=== PATIENT | female | born 1955 | race Caucasian/White ===

== ENCOUNTER 2017-01-19 12:25 | Inpatient (IN) | payer OTHER ==
[~2017-01-19] VITALS: Ht 172.7 cm; Wt 41.0 kg
[2017-02-02] MEDS ORDERED: CALC1TAB12 PO (10:31)
[2017-02-02] MEDS ORDERED: LEVO100T5 PO (10:31)
[2017-02-02] MEDS ORDERED: CELE200C PO (10:31)
[2017-02-02] MEDS ORDERED: FLUT50SP EACH NARE (10:31)
[2017-02-02] MEDS ORDERED: CO Q100C9 PO (10:31)
[2017-02-02] MEDS ORDERED: LEVO200T4 PO (10:31)
[2017-02-02] MEDS ORDERED: POTA10TA8 PO (10:31)
[2017-02-02] MEDS ORDERED: ESTR0.5T PO (10:31)
[2017-02-02] MEDS ORDERED: ZOCO40TA PO (10:31)
[2017-02-02] MEDS ORDERED: VENTAER INH ×2 (10:31)
[2017-02-02] MEDS ORDERED: FURO20TA PO (10:31)
[2017-02-02] MEDS ORDERED: ERGO1CAP10 PO (10:31)
[2017-02-02] MEDS ORDERED: MULTTAB25 PO (10:32)
[2017-02-02] MEDS ORDERED: RANI150T PO (10:40)
[2017-02-21] MEDS ORDERED: POVIDONE IODINE 5% (ANTISEPSIS KIT) 4 APPLICATIONS EACH NARE PRN (06:15)
[2017-02-21] MEDS ORDERED: INSULIN HUMAN REGULAR 1,000 UNITS/10 ML VIAL SQ PRN (06:15)
[2017-02-21] MEDS ORDERED: METOPROLOL TARTRATE 25 MG TAB PO PRN (06:15)
[2017-02-21] MEDS ORDERED: SODIUM CHLORID 0.9% 500 ML IV PRN (06:15)
[2017-02-21] MEDS ORDERED: LACTATED RINGER'S 1000 ML IV PRN (06:15)
[2017-02-21] MEDS ORDERED: CHLORHEXIDINE GLUCONATE 2 % 1 PACK (2 CLOTHS) TOPICAL PRN (06:15)
[2017-02-21] MEDS ORDERED: ENOX40P SQ (06:50)
[2017-02-21] MEDS ORDERED: HYDR-3288 PO (06:50)
[2017-02-21] MEDS ORDERED: ASPI81CH37 CHEW (06:51)
[2017-02-21] MEDS ORDERED: ONDANSETRON HCL 4 MG/2 ML VIAL IVP PRN ×2 (07:00→17:00)
[2017-02-21] MEDS ORDERED: BISACODYL 10 MG SUPP RECTAL PRN (07:00)
[2017-02-21] MEDS ORDERED: NALOXONE HCL 0.4 MG/ML AMP IV PRN (07:00)
[2017-02-21] MEDS ORDERED: ALUMINUM/MAGNESIUM/SIMETH 30 ML CUP PO PRN (07:00)
[2017-02-21] MEDS ORDERED: SODIUM CHLORIDE 0.9% FLUSH 5 ML FLUSH IVF PRN (07:00)
[2017-02-21] MEDS ORDERED: HYDROmorphone HCL PF 2 MG/ML VIAL IV PRN (07:00)
[2017-02-21] MEDS ORDERED: ACETAMINOPHEN/HYDROcodone 325 MG/7.5 MG TAB PO PRN (07:00)
[2017-02-21] MEDS ORDERED: ZOLPIDEM TARTRATE 5 MG TAB PO PRN (07:00)
[2017-02-21] MEDS ORDERED: diphenhydrAMINE HCL 50 MG/ML VIAL IV PRN (07:00)
[2017-02-21] MEDS ORDERED: Post-op Orders (for Pharmacy) MISC XX ONE (07:00)
[2017-02-21] MEDS ORDERED: LEVO50TA4 PO (07:14)
[2017-02-21] MEDS ORDERED: LEVO150T7 PO (07:14)
[2017-02-21 07:20] VITALS: BP 126/77; PULSE 89; RESP 16; TEMP 98.3; O2SAT 98
[2017-02-21] MEDS ORDERED: ceFAZolin 2 GM PREMIX 50 ML ONE (07:20)
[2017-02-21] MEDS ORDERED: DEXAMETHASONE SOD PHOS 20 MG/5 ML VIAL ONE (07:20)
[2017-02-21] MEDS ORDERED: VANCOMYCIN HCL 1000 MG VIAL ONE (07:21)
[2017-02-21] MEDS ORDERED: SODIUM CHLOR 0.9% 250 ML INJ 250 ML ONE (07:21)
[2017-02-21] MEDS ORDERED: GENTAMICIN SULFATE 80 MG/2 ML VIAL ONE (07:49)
[2017-02-21] MEDS ORDERED: ACETAMINOPHEN 1000 MG/100 ML VIAL IV ONE (08:00)
[2017-02-21] MEDS ORDERED: TRANEXAMIC PERI-ARTICULAR 3,000 MG/NS 100 ML P-ARTICULR SCH ×2 (08:00)
[2017-02-21] MEDS ORDERED: POVIDONE IODINE 7.5% SCRUB 118 ML BOTTLE TOPICAL SCH (08:00)
[2017-02-21] MEDS ORDERED: CHLORHEXIDINE GLUCONATE 4% SOLN 120 ML BTL TOPICAL SCH (08:00)
[2017-02-21] MEDS ORDERED: ROPIVACAINE PERI-ARTICULAR INJECTION. P-ARTICULR SCH ×5 (08:00)
[2017-02-21] MEDS ORDERED: TRANEXAMIC ACID IV SCH (08:00)
[2017-02-21] MEDS ORDERED: SODIUM CHLORIDE 0.9% IV SCH (08:00)
[2017-02-21] MEDS ORDERED: ceFAZolin 2 GM PREMIX 50 ML IV SCH (08:00)
[2017-02-21] MEDS ORDERED: VANCOMYCIN 1000 MG/NS 250 ML (for <70 kg) IV SCH ×2 (08:00)
[2017-02-21] MEDS ORDERED: FAMOTIDINE 20 MG/2 ML VIAL ONE (08:05)
[2017-02-21] MEDS ORDERED: MIDAZOLAM HCL 5 MG/5 ML VIAL ONE (08:05)
[2017-02-21] MEDS ORDERED: DEXAMETHASONE SOD PHOS 20 MG/5 ML VIAL IV ONE (08:15)
[2017-02-21] MEDS ORDERED: PROPOFOL 200 MG/20 ML AMP IV ONE (09:11)
[2017-02-21] MEDS ORDERED: PHENYLEPH/NS 1000 MCG/10 ML SYR IV ONE (09:12)
[2017-02-21] MEDS ORDERED: ONDANSETRON HCL 4 MG/2 ML VIAL IV PUSH ONE (09:12)
[2017-02-21] MEDS ORDERED: NEOSTIGMINE 3 MG/3 ML SYR IV ONE (09:12)
[2017-02-21] MEDS ORDERED: LACTATED RINGER'S 1000 ML INJ 1,000 ML IV ONE (09:13)
[2017-02-21] MEDS ORDERED: BUPIVACAINE LIPOSOME PF 1.3% 20 ML VIAL ONE (10:45)
[2017-02-21] MEDS ORDERED: fentaNYL CITRATE 250 MCG/5 ML AMP ONE (11:06)
[2017-02-21] MEDS ORDERED: *HYDROmorphone PF 1 MG VIAL PERIprocedural Use ONLY ONE (11:10)
[2017-02-21] MEDS: SODIUM CHLOR 0.9% 1000 ML INJ 1,000 ML IV SCH ×3 (11:20→19:41)
--- NOTE | 2017-02-21 11:30 | RADRPT ---
EXAM DATE/TIME: 02/21/2017 10:59 [facility] COMPARISON: No previous studies available for comparison. INDICATIONS : Post op left total knee replacment. MEDICAL HISTORY : Unobtainable. SURGICAL HISTORY : Unobtainable. ENCOUNTER: Initial ACUITY: 1 day PAIN SCORE: Non-responsive. LOCATION: Left knee FINDINGS: 2 views of the knee show a total knee prosthesis in good position. No fracture or dislocation is obse rved. Soft tissue swelling is noted. Air and fluid is noted within the joint. CONCLUSION: Postoperative knee arthroplasty. Vernon Walsh Jr., MD on February 21, 2017 at 11:26 Board Certified Radiologist. This report was verified electronically.
[2017-02-21 12:15] VITALS: BP 184/98; PULSE 94; RESP 18; TEMP 96.1; O2SAT 99
--- NOTE | 2017-02-21 13:04 | HHI.DCPOC ---
Discharge Care Plan Diagnosis: (1) Primary localized osteoarthrosis, lower leg Your Health Problems Are: Difficulty with ADL Goals to Promote Your Health * To prevent worsening of your condition and complications * To maintain your health at the optimal level Directions to Meet Your Goals Take your medications as prescribed Follow your dietary instruction Follow activity as directed Keep your appointments as scheduled Take your immunizations and boosters as scheduled If your symptoms worsen call your PCP, if no PCP go to Urgent Care Center or Emergency Room Smoking is Dangerous to Your Health. Avoid second hand smoke Call the 24-hour hour crisis hotline for domestic abuse at Earl Aguila February 21, 2017 13:04
[2017-02-21] MEDS ORDERED: COMMODE 3-IN-11 MIS (13:06)
[2017-02-21] MEDS ORDERED: CPMMACHINE (13:06)
[2017-02-21] MEDS ORDERED: WALKER WHEELS/F1 MIS (13:06)
[2017-02-21] MEDS: ACETAMINOPHEN/HYDROcodone 325 MG/7.5 MG TAB PO PRN ×2 (13:10→17:43)
--- NOTE | 2017-02-21 13:12 | HHI.FF ---
Face to Face Verification Diagnosis: (1) Primary localized osteoarthrosis, lower leg Physical Therapy Gait training, Safety evaluation, Transfer training, bed to chair Knee: Total knee, Protocol: Left, Full weight bearing Left LE Weight Bearing: WB as tolerated Nursing RN: 3 days/week x 2 weeks Nursing: Evelin teaching, Dressing changes Dressing Changes: Daily dressing change I have seen patient Yvette Vidal on 02/21/17. My clinical findings support the need for the requested home health care services because: Limited ability to care for self High risk of falls I certify that my clinical findings support that this patient is homebound because: Post-op weakness Unsteady gait/balance Earl Aguila February 21, 2017 13:12
--- NOTE | 2017-02-21 15:20 | PD.CONS ---
HPI Service [facility] Hospitalists Consult Requested By Dr. Earl Groves Reason for Consult medical management Primary Care Physician Harris Zhang MD Diagnoses: History of Present Illness Mrs. Vidal is a pleasant 61 y/o female with hypothyroidism, mild PHILIP, hyperlipidemia hx of breast cancer and osteoarthritis. Pt was admitted to [facility] on 02/21/17 for elective Left total knee arthroplasty performed by Dr. Groves. [facility] Hospitalist team was consulted to help with managing the pts chronic medical issues. She is seen post-operatively and complains of pain. She has also been having some nausea and vomiting. She denies any issues with her BP normally and she does not take any BP controlling medications as an outpt. Pt denies any chest pain, SOB, abd pain, dysphagia, palpitations or dizziness. Murrell cath is in place. Review of Systems Constitutional: DENIES: Fever, Chills Respiratory: DENIES: Shortness of breath Cardiovascular: DENIES: Chest pain Gastrointestinal: COMPLAINS OF: Nausea, Vomiting, DENIES: Abdominal pain Musculoskeletal: COMPLAINS OF: Joint pain Integumentary: DENIES: Rash Neurologic: DENIES: Headache Psychiatric: DENIES: Confusion Past Family Social History Past Medical History Hypothyroidism Hyperlipidemia Osteoarthritis Migraine headaches Obstructive sleep apnea, uses a dental appliance and she has mild sleep apnea. Asthma Hx of breast cancer Vitamin D deficiency GERD Hx of depression Allergic rhinitis Past Surgical History Left breast radical mastectomy in 1997 along with chemotherapy and radiation therapy Left breast reconstruction Prophylactic simple right mastectomy on 08-31-10 with right breast reconstruction Right knee arthroscopy Cesarian section ERNST with BSO Ventral hernia repair Reported Medications --Levothyroxine 200 Mcg PO MoFr --Levothyroxine 150 Mcg PO SuTuWeThSa -Ranitidine 150 Mg PO BID -Ventolin Hfa 18 GM Inh (Albuterol Sulfate) 90 Mcg/Act Aer 2 Puff INH Q4-6H PRN -Celebrex (Celecoxib) 200 Mg Cap 300 Mg PO DAILY PRN -Zocor 40 Mg PO HS -Potassium Chloride CR 10 Meq PO DAILY -Furosemide 20 Mg PO DAILY -Fluticasone Nasal [place] 50 Mcg/Act Naspr 50 Mcg EACH NARE BID 50 mcg/spray -Estradiol 0.5 Mg Tab 0.5 Mg PO TUESDAY Multi For Her 50+ (Multiple Vitamins W/ Minerals) 1 Tab Tab 1 Tab PO DAILY Co Q 10 (Coenzyme Q10 (Ubidecarenone)) 100 Mg Cap 1 Cap PO DAILY Calcium 500 +D (Calcium Carbonate-Cholecalciferol) 500-400 Mg-Unit Tab 1 Tab PO DAILY Vitamin D (Ergocalciferol) 50,000 Unit Cap 50,000 Units PO TUESDAY Allergies: Coded Allergies: Ciprofloxacin (Verified Allergy, Severe, 02/02/17) YEAST Spironolactone (Verified Allergy, Severe, Rash, 02/02/17) RASH Morphine (Verified Adverse Reaction, Intermediate, Confusion, 02/21/17) Uncoded Allergies: ASPARTAME (Allergy, Severe, MOOD SWINGS, 02/21/17) paper tape (Allergy, Severe, Rash, 02/02/17) Family History Noncontributory Social History Pt denies any alcohol, tobacco or illicit drug use Pt works as a nurse Physical Exam Vital Signs Vital Signs Date Time Temp Pulse Resp B/P Pulse Ox O2 Delivery O2 Flow Rate FiO2 02/21/17 12:15 96.1 94 18 184/98 99 02/21/17 12:00 97.8 96 16 152/78 96 Nasal Cannula 2 02/21/17 11:45 99 16 154/85 95 Nasal Cannula 2 02/21/17 11:30 96 15 152/77 98 Nasal Cannula 2 02/21/17 11:15 97 16 155/78 97 Nasal Cannula 2 02/21/17 11:00 108 15 154/82 95 Nasal Cannula 2 02/21/17 10:58 97.7 114 14 168/79 91 Room Air 02/21/17 07:20 98.3 89 16 126/77 98 Physical Exam GENERAL: This is a well-nourished, well-developed patient, in no apparent distress. HEENT: Atraumatic. Normocephalic. No temporal or scalp tenderness. No scleral icterus. Airway patent. NECK: Trachea midline, supple, nontender. CARDIO: Regular. RESP: CTA bilaterally. No wheezes, rales, or rhonchi. ABD: +BS, soft, non-tender, nondistended. EXT: Left knee bandages are c/d/i NEURO: Awake and alert. Motor and sensory grossly within normal limits. Normal speech. Laboratory Laboratory Tests Test 02/21/17 07:16 Blood Type O POSITIVE Antibody Screen NEGATIVE Imaging Last Impressions Knee X-Ray 02/21/17 0647 Signed Impressions: Service Date/Time: Tuesday, February 21, 2017 10:59 - CONCLUSION: Postoperative knee arthroplasty. Vernon Walsh Jr., MD Assessment and Plan Problem List: (1) Primary localized osteoarthrosis, lower leg Status: Acute Plan: - Pt s/p left total knee arthroplasty on 02/21/[address] Groves - Post-op pain control per Ortho - Antiemetics PRN - Murrell to be removed tomorrow morning. - Pts BP elevation likely secondary to pain and N/V but will add Clonidine 0.1mg PRN for systolic BP over 170 - IS - PT daily - Constipation precautions - DVT prophylaxis with Lovenox (2) PHILIP (obstructive sleep apnea) Status: Chronic Plan: - Pt uses a dental appliance and this is well controlled per the pt. (3) Hyperlipidemia Status: Chronic Plan: - home meds continued (4) Hypothyroidism Status: Chronic Plan: - Home meds continued with Levothyroxin 200mcg MoFr and 150mcg SuTuWeThSa Assessment and Plan Patient examined. Assessment and plan formulated with Chanda Clemens PA-C. I agree with the above. S/P LEFT TKA. HAVING SOME N/V NOW BUT OVERALL DOING WELL. WILL FOLLOW. Problem Qualifiers (1) Primary localized osteoarthrosis, lower leg: Qualified Code: M17.12 - Primary localized osteoarthrosis, lower leg, left Chanda Clemens February 21, 2017 15:20 José Miguel Mcdowell MD February 21, 2017 20:53
[2017-02-21 16:00] VITALS: BP 102/80; PULSE 96; RESP 18; TEMP 96.6; O2SAT 99
[2017-02-21] MEDS ORDERED: ONDANSETRON HCL 4 MG/2 ML VIAL IV ONE (16:00)
[2017-02-21] MEDS ORDERED: PROMETHAZINE HCL 25 MG TAB PO PRN (16:00)
[2017-02-21 16:22] VITALS: O2SAT 100
[2017-02-21] MEDS ORDERED: cloNIDine HCL 0.1 MG TAB PO PRN (16:30)
[2017-02-21 19:00] VITALS: BP 116/68; PULSE 93; RESP 18; TEMP 97.8; O2SAT 98
[2017-02-21] MEDS: FAMOTIDINE 20 MG TAB PO SCH (19:40)
[2017-02-21] MEDS: POLYETHYLENE GLYCOL 17 GM PKG PO SCH (19:40)
[2017-02-21] MEDS: SODIUM CHLORIDE 0.9% FLUSH 5 ML FLUSH IVF SCH (19:41)
[2017-02-21] MEDS ORDERED: MAGNESIUM HYDROXIDE SUSP 30 ML CUP PO PRN (23:45)
[2017-02-22] VITALS (8 sets, daily range): BP systolic 97–138; BP diastolic 56–68; PULSE 89–105; RESP 16–18; TEMP 96.3–98.8; O2SAT 98–100
[2017-02-22] MEDS: ACETAMINOPHEN/HYDROcodone 325 MG/7.5 MG TAB PO PRN ×4 (00:14→20:36)
[2017-02-22] MEDS: LEVOTHYROXINE SODIUM 150 MCG TAB PO SCH (05:35)
[2017-02-22] MEDS ORDERED: LEVOTHYROXINE SODIUM 200 MCG TAB PO SCH (06:00)
--- NOTE | 2017-02-22 08:23 | PD.ORT.PN ---
Subjective Post Op Day #: 1 Subjective Remarks doing well. pain tolerable. worried that she has stairs to climb at home. Objective Vitals Vital Signs Date Time Temp Pulse Resp B/P Pulse Ox O2 Delivery O2 Flow Rate FiO2 02/22/17 07:49 97.8 100 18 101/60 99 02/22/17 04:00 97.0 101 17 111/56 98 02/22/17 00:00 96.3 92 16 115/68 98 02/21/17 19:39 98 Nasal Cannula 2.00 02/21/17 19:00 97.8 93 18 116/68 98 02/21/17 16:22 100 Nasal Cannula 2.00 02/21/17 16:00 96.6 96 18 102/80 99 02/21/17 12:15 96.1 94 18 184/98 99 02/21/17 12:00 97.8 96 16 152/78 96 Nasal Cannula 2 02/21/17 11:45 99 16 154/85 95 Nasal Cannula 2 02/21/17 11:30 96 15 152/77 98 Nasal Cannula 2 02/21/17 11:15 97 16 155/78 97 Nasal Cannula 2 02/21/17 11:00 108 15 154/82 95 Nasal Cannula 2 02/21/17 10:58 97.7 114 14 168/79 91 Room Air I/O 02/21/17 02/21/17 02/21/17 02/22/17 02/22/17 02/22/17 07:00 15:00 23:00 07:00 15:00 23:00 Intake Total 1240 ml 985 ml 1407 ml Output Total 250 ml 300 ml 950 ml Balance 990 ml 685 ml 457 ml Intake Oral 240 ml 480 ml 480 ml IV Total 200 ml 505 ml 927 ml Other 800 ml Output Urine Total 200 ml 300 ml 950 ml Estimated Blood Loss 50 ml # Bowel Movements 0 0 Objective Remarks in bed, nad incision no erythema, no drainage neg homans nvi Assessment & Plan Ortho Post Op Day #: 1 Problem List: Assessment and Plan s/p L TKA wbat daily dressing changes lovenox rx in chart PT - work on stairs d/c planning home with [facility] and pt f/up dr. villagomez 2 weeks Earl Aguila February 22, 2017 08:22
[2017-02-22] MEDS: FAMOTIDINE 20 MG TAB PO SCH ×2 (08:42→19:44)
[2017-02-22] MEDS: POLYETHYLENE GLYCOL 17 GM PKG PO SCH ×2 (08:43→19:44)
[2017-02-22] MEDS: POTASSIUM CHLORIDE 10 MEQ CONTROLLED RELEASE TAB PO SCH (08:43)
[2017-02-22] MEDS: SODIUM CHLORIDE 0.9% FLUSH 5 ML FLUSH IVF SCH ×2 (08:43→19:45)
[2017-02-22] MEDS: FUROSEMIDE 20 MG TAB PO SCH (08:43)
[2017-02-22 08:47] LABS: MEAN CELL VOLUME 87.6 FL (80.0-100.0); MEAN CORPUSCULAR HGB CONC 33.1 % (32.0-36.0); PLATELET COUNT 292 TH/MM3 (150-450); RED BLOOD COUNT 3.65 MIL/MM3 (4.00-5.30); RED CELL DISTRIBUTION WIDTH 14.6 % (11.6-17.2); REVIEW FLAG FINAL; WHITE BLOOD COUNT 13.4 TH/MM3 (4.0-11.0)
[2017-02-22 09:02] LABS: BICARBONATE 21.9 MEQ/L (21.0-32.0); POTASSIUM 3.7 MEQ/L (3.5-5.1)
[2017-02-22] MEDS: ENOXAPARIN SODIUM 40 MG/0.4 ML SYRINGE SQ SCH (09:49)
--- NOTE | 2017-02-22 10:06 | MP ---
cc: TAYLER BINGHAM DATE OF SURGERY: 02/21/2017 PREOPERATIVE DIAGNOSIS Left knee osteoarthritis. POSTOPERATIVE DIAGNOSIS Left knee osteoarthritis. PROCEDURE Left total knee arthroplasty. SURGEON Dr. Tayler Bingham ENGINEER [employer] Tayler Aguila PA-C ANESTHESIA General with femoral nerve block. ESTIMATED BLOOD LOSS Less than 50 cc. COMPLICATIONS None. IMPLANTS USED DePuy Attune, size 6 posterior stabilized femoral component, size 5 rotating platform tibial baseplate, size 12 mm polyethylene tibial insert, size 35 patella. JUSTIFICATION The patient is a 61-year-old female with a history of severe osteoarthritis involving the left knee. She has severe disabling pain with standing, walking, ambulation, weightbearing activities and even severe pain at rest. She has failed greater than three months of nonoperative conservative treatment to include medication therapy, injections, ambulatory assisted aids, home exercise program, activity modification and weight loss. The patient's x-rays reveal severe end-stage osteoarthritis, [id number] joint space narrowing, subchondral sclerosis, subchondral cysts, osteophyte formation and a large varus deformity. The patient is counseled as to the risks, benefits and alternatives to a total knee arthroplasty. The risks were discussed which include but are not limited to anesthesia, bleeding, infection, damage to nerves and blood vessels, pain, stiffness, failure of the components, blood clots, pulmonary embolism and even . The patient's pain is severe. She favored the benefits over the risks and did wish to proceed with surgery. PROCEDURE Written consent was obtained. The patient was identified by name, taken to the operating room and placed supine on the operating table. General anesthesia was administered as well as two grams of IV Ancef and one gram of IV vancomycin. She did receive a preoperative femoral nerve block. A well-padded tourniquet was placed on the left thigh. The left lower extremity prepped and draped using isopropyl alcohol, Hibiclens solution and ChloraPrep solution. After a timeout was performed an Esmarch bandage was used to exsanguinate the left lower extremity and tourniquet inflated to 250 mmHg. A longitudinal incision was made over the anterior aspect of the left knee. A medial parapatellar arthrotomy was performed. The patella was everted. A patellar resection guide was used to resect 9 mm of patella. The size 35 mm guide was placed. Three drill holes were placed and the 35 mm trial fit well. Attention was turned to the femur. An intramedullary guide was placed and the distal femoral guide was set to remove 10 mm of distal femur 5 degrees off the anatomic valgus axis alignment. An oscillating saw was used to perform a distal femoral cut. Attention was turned to the tibia where an extramedullary tibial guide was used to remove 4 mm off the lowest portion of the medial tibial plateau. The tibial guide was pinned in place and a tibial cut was performed. A 5 mm spacer block did show some hyperextension. Attention was turned back to the femur where an AP sizing block measured a size 6. The anterior reference 30 degree external rotation guide was used to pin a size [address] The anterior, posterior and chamfer cuts were performed. A size 6 PCL box guide pin was pinned in place. The PCL was box cut with an oscillating saw. The medial and lateral meniscus remnants were removed as well as bone and soft tissue debris from the posterior portion of the knee. A size 5 tibial baseplate was pinned in place. The tibia was drilled and punched. The trial components were evaluated and final components cemented in place. With the 12 mm tibial insert the leg could achieve full extension to 0 degrees and flexion to 140. No evidence of tibial lift-off. Varus-valgus balance appeared appropriate and symmetric and the patella was noted to track centrally. The tourniquet was deflated. Bovie cautery was used for hemostasis. The knee was thoroughly irrigated with sterile saline pulse lavage antibiotic impregnated solution. The arthrotomy incision was closed with #1 Vicryl suture, the subcutaneous layer with 2-0 Vicryl suture. The skin was closed with Dermabond. Sterile dressing was applied. The patient tolerated the procedure with no intraoperative complications noted. Tayler Aguila, physician prosthetic assistant certified, was present during the entire procedure to include patient positioning and the procedure itself. The medical necessity of the physician prosthetic assistant was indicated in this case due to the complexity of the procedure. He assisted with appropriate manipulation of the leg and also traction of muscle, tendon, bone and neurovascular structures. He assisted with preparation of bone and also implantation of the prosthetic replacement. MD NIDA Watkins/ROMEO /10:30 AM 9:47 AM
[2017-02-22] MEDS: SODIUM CHLOR 0.9% 1000 ML INJ 1,000 ML IV SCH ×2 (12:47→19:45)
[2017-02-22] MEDS: DOCUSATE SODIUM 100 MG CAP PO SCH (19:44)
[2017-02-22] MEDS: MULTIVITAMINS/MINERALS THERAPEUTIC TAB PO SCH (19:44)
[2017-02-23 00:15] VITALS: BP 124/65; PULSE 100; RESP 17; TEMP 97.6; O2SAT 100
[2017-02-23] MEDS: LEVOTHYROXINE SODIUM 150 MCG TAB PO SCH (05:18)
[2017-02-23] MEDS: ACETAMINOPHEN/HYDROcodone 325 MG/7.5 MG TAB PO PRN ×2 (05:19→09:00)
[2017-02-23 07:07] LABS: HEMATOCRIT 27.1 % (35.0-46.0); MEAN CELL VOLUME 86.7 FL (80.0-100.0); MEAN CORPUSCULAR HEMOGLOBIN 30.3 PG (27.0-34.0); PLATELET COUNT 237 TH/MM3 (150-450); RED BLOOD COUNT 3.12 MIL/MM3 (4.00-5.30); RED CELL DISTRIBUTION WIDTH 14.9 % (11.6-17.2); REVIEW FLAG FINAL; WHITE BLOOD COUNT 6.9 TH/MM3 (4.0-11.0)
[2017-02-23 07:37] LABS: BICARBONATE 27.5 MEQ/L (21.0-32.0); POTASSIUM 3.5 MEQ/L (3.5-5.1)
--- NOTE | 2017-02-23 07:50 | PD.ORT.PN ---
Subjective Post Op Day #: 2 Subjective Remarks doing well. pain tolerable. going to work more with PT this am with going up stairs. Objective Vitals Vital Signs Date Time Temp Pulse Resp B/P Pulse Ox O2 Delivery O2 Flow Rate FiO2 02/23/17 00:15 97.6 100 17 124/65 100 02/22/17 20:15 98.8 105 18 108/66 99 02/22/17 18:06 98 21 02/22/17 16:00 97.6 96 18 97/65 98 02/22/17 12:00 97.6 89 18 138/57 100 02/22/17 08:40 Room Air 02/22/17 08:39 99 Nasal Cannula 1.00 I/O 02/22/17 02/22/17 02/22/17 02/23/17 02/23/17 02/23/17 07:00 15:00 23:00 07:00 15:00 23:00 Intake Total 1407 ml 720 ml 240 ml 240 ml Output Total 950 ml Balance 457 ml 720 ml 240 ml 240 ml Intake Oral 480 ml 720 ml 240 ml 240 ml IV Total 927 ml Output Urine Total 950 ml # Voids 4 1 2 # Bowel Movements 0 0 0 0 Result Diagram: 02/23/17 0613 02/23/17 0613 Objective Remarks in bed, nad dressing c/d/i neg homans nvi Assessment & Plan Ortho Post Op Day #: 2 Problem List: Assessment and Plan s/p L TKA wbat daily dressing changes lovenox rx in chart PT - work on stairs d/c planning home with [facility] and pt - cleared for today f/up dr. villagomez 2 weeks Earl Aguila February 23, 2017 07:50
[2017-02-23 08:00] VITALS: BP 104/64; PULSE 84; RESP 19; TEMP 97.2; O2SAT 93
[2017-02-23] MEDS: DOCUSATE SODIUM 100 MG CAP PO SCH (09:00)
[2017-02-23] MEDS: POLYETHYLENE GLYCOL 17 GM PKG PO SCH ×2 (09:00→10:09)
[2017-02-23] MEDS: FUROSEMIDE 20 MG TAB PO SCH (09:01)
[2017-02-23] MEDS: MULTIVITAMINS/MINERALS THERAPEUTIC TAB PO SCH (09:01)
[2017-02-23] MEDS: FAMOTIDINE 20 MG TAB PO SCH (09:01)
[2017-02-23] MEDS: POTASSIUM CHLORIDE 10 MEQ CONTROLLED RELEASE TAB PO SCH (09:01)
[2017-02-23] MEDS: ENOXAPARIN SODIUM 40 MG/0.4 ML SYRINGE SQ SCH (10:08)
--- NOTE | 2017-02-23 12:14 | MD ---
cc: TAYLER BINGHAM ADMISSION DATE: 02/21/2017 DISCHARGE DATE: 02/23/2017 ADMISSION DIAGNOSIS Severe degenerative osteoarthritis, left knee. DISCHARGE DIAGNOSIS Severe degenerative osteoarthritis, left knee. HISTORY OF PRESENT ILLNESS Ms. Vidal is a 61-year-old female who presented to the [facility] for evaluation by Dr. Tayler Bingham regarding severe and progressive left knee pain. The patient states the left knee pain has been present for several years but has become more significant over the last 6 months. She states her pain is aggravated with weightbearing activities. At this point in time she had no alleviating factors, although in the past she has tried medications, bracing, physical therapy, home exercise program, weight loss attempts and multiple corticosteroid injections without long-lasting relief of symptoms. She does have x-ray evidence of severe degenerative osteoarthritis of the left knee. While in the office the patient was counseled on her diagnosis and treatment options. Risks, benefits, indications were all discussed in great detail. The patient did elect to proceed with surgical intervention to include a left total knee arthroplasty. Date of surgery 02/21/2017: Left total knee arthroplasty. POSTOP Postop after surgery the patient was admitted to [facility] where she received appropriate medical management, pain control and DVT prophylaxis as well as physical therapy. DISCHARGE Once being discharged from the hospital the patient is cleared to go home where she will receive home health care and home physical therapy. Patient is in stable condition. She may weight-bear as tolerated. Patient is to receive daily dressing changes and has been instructed on appropriate wound care management. She has been provided prescriptions for pain control as well as DVT prophylaxis medication. She has also been provided a follow-up appointment in the office at approximately 2 weeks from her date of surgery. The patient has asked appropriate questions which have been answered. The patient is cleared for discharge. Dictated by: Tayler Aguila, AMA MD NIDA Watkins/MALENAL /7:54 AM /12:13 PM
[2017-02-25] MEDS ORDERED: LEVOTHYROXINE SODIUM 200 MCG TAB PO SCH (06:00)
== END 2017-02-23 10:52 | disposition home health service (06) | DRG 470 ==
LOC: HSDI 02-21 05:38 → N06B 02-21 12:25
PROVIDERS: ADMIT Orthopaedic Surgery Sports Medicine; ATTEND Orthopaedic Surgery Sports Medicine
PROC: 3E0T3CZ (ICD-10-PCS; 2017-02-21)
PROC: 0SRD0J9 Replacement of Left Knee Joint with Synthetic Substitute, Cemented, Open Approach (ICD-10-PCS; principal; 2017-02-21 08:18)
DX: M17.12 Unilateral primary osteoarthritis, left knee (principal); E55.9 Vitamin D deficiency, unspecified; E03.9 Hypothyroidism, unspecified; E78.5 Hyperlipidemia, unspecified; J45.909 Unspecified asthma, uncomplicated; K21.9 Gastro-esophageal reflux disease without esophagitis; G47.33 Obstructive sleep apnea (adult) (pediatric); J30.9 Allergic rhinitis, unspecified; Z85.3 Personal history of malignant neoplasm of breast
CPT/HCPCS: 73560; 76937; 80048; 85027; 86850; 86900; 86901; 94150; C1776; C9290; J0131; J0171; J0690; J0735; J1100; J1170; J1580; J1650; J1885; J2250; J2370; J2405; J2710; J2795; J3010; J3370; J7030; J7050; J7120; L1830; Q0169

== ENCOUNTER → 2017-02-02 | Outpatient (CLI) | payer OTHER ==
[~2017-02-02] MED LIST: ASPI81CH37 CHEW; CALC1TAB12 PO; CALCCHW25 PO; CELE200C PO; CO Q100C9 PO; COMMODE 3-IN-11 MIS; COQ-100C5 PO; CPMMACHINE; DICL75 PO; ENOX40P SQ; ERGO1CAP10 PO; ESTR0.053 TD; ESTR0.5T PO; FLON0.053; FLUT50SP EACH NARE; FURO1TAB93 PO; FURO20TA PO; HYDR-3288 PO; LEVO.2 PO; LEVO100T5 PO; LEVO150T7 PO; LEVO200T4 PO; LEVO50TA4 PO; METO25CR PO; MULT-65 PO; MULTTAB25 PO; PANT40TA3 PO; POTA-243 PO; POTA10TA8 PO; PROT40TA PO; RANI150T PO; SIMV40 PO; VENTAER INH; VITA200017 OR; WALKER WHEELS/F1 MIS; ZOCO40TA PO
[2017-02-02 11:33] LABS: AUTOMATED NEUTROPHIL # 5.8 TH/MM3 (1.8-7.7); BASOPHIL % 0.2 % (0.0-2.0); EOSINOPHIL % 0.5 % (0.0-4.0); HEMATOCRIT 39.2 % (35.0-46.0); HEMO FLAGS DIFF FINAL; LYMPH % 23.7 % (9.0-44.0); MEAN CELL VOLUME 87.6 FL (80.0-100.0); MEAN CORPUSCULAR HEMOGLOBIN 28.8 PG (27.0-34.0); MEAN CORPUSCULAR HGB CONC 32.8 % (32.0-36.0); MONO % 6.8 % (0.0-8.0); NEUT % 68.8 % (16.0-70.0); PLATELET COUNT 275 TH/MM3 (150-450); RED BLOOD COUNT 4.47 MIL/MM3 (4.00-5.30); WHITE BLOOD COUNT 8.4 TH/MM3 (4.0-11.0)
--- NOTE | 2017-02-02 11:38 | EKG ---
Date Performed: 02/02/2017 Time Performed: 10:12:14 PTAGE: 61 years EKG: Sinus rhythm NORMAL ECG NO PREVIOUS TRACING DOCTOR: Moi Rodriguez Interpretating Date/Time 02/02/2017 11:37:49
[2017-02-02 11:40] LABS: APTT (PATIENT) 26.8 SEC (24.3-30.1); INTERNATIONAL NORMALIZED RATIO 0.9 RATIO
[2017-02-02 11:57] LABS: WESTERGREN SEDIMENTATION RATE 36 mm/hr (0-30)
[2017-02-02 12:00] LABS: ALKALINE PHOSPHATASE 100 U/L (45-117); ALT (GPT) 23 U/L (10-53); ANION GAP 8 MEQ/L (5-15); AST (GOT) 19 U/L (15-37); BICARBONATE 27.8 MEQ/L (21.0-32.0); BLOOD UREA NITROGEN 9 MG/DL (7-18); CHLORIDE 101 MEQ/L (98-107); GLOMERULAR FILTRATION RATE 91 ML/MIN (>89); GLUCOSE,FASTING 88 MG/DL (74-99); POTASSIUM 3.8 MEQ/L (3.5-5.1); SODIUM (NA) 137 MEQ/L (136-145); TOTAL BILIRUBIN ADULT 0.5 MG/DL (0.2-1.0)
[2017-02-02 12:04] LABS: BLOOD, URINE NEG (NEG); COMMENT (UR) CULT NOT INDICATED; CULTURE IF INDICATED CULT NOT INDICATED; GLUCOSE,URINE NEG (NEG); KETONE, URINE NEG (NEG); MUCUS URINE FEW /lpf (OCC); NITRITE,URINE NEG (NEG); PH, URINE 5.5 (5.0-8.5); SQUAMOUS EPITHELIAL CELL URINE 1 /hpf (0-5); URINE COLOR YELLOW (YELLW/STRAW)
--- NOTE | 2017-02-02 12:14 | RADRPT ---
EXAM DATE/TIME: 02/02/2017 11:45 [facility] COMPARISON: No previous studies available for comparison. INDICATIONS : Pre op knee replacement. MEDICAL HISTORY : None. SURGICAL HISTORY : None. ENCOUNTER: Initial ACUITY: 1 day PAIN SCORE: 0/10 LOCATION: Bilateral chest FINDINGS: PA and lateral views of the chest demonstrate the lungs to be symmetrically aerated without evidence of mass, infiltrate or effusion. The cardiomediastinal contours are unremarkable. Osseous structure s are intact. CONCLUSION: No acute disease. Eduardo Reilly MD on February 02, 2017 at 12:12 Board Certified Radiologist. This report was verified electronically.
== END ==
LOC: CPRE 09:55
PROVIDERS: ATTEND Orthopaedic Surgery Sports Medicine
DX: Z01.812 Encounter for preprocedural laboratory examination (principal); Z01.810 Encounter for preprocedural cardiovascular examination; Z01.811 Encounter for preprocedural respiratory examination; M17.12 Unilateral primary osteoarthritis, left knee
CPT/HCPCS: 36415; 71020; 80053; 81001; 85025; 85610; 85652; 85730; 93005

== ENCOUNTER 2017-04-19 15:55 | Inpatient (IN) | payer OTHER ==
[~2017-04-19] VITALS: Ht 12.7 cm; Wt 111.3 kg
[~2017-04-19 15:55] MED LIST changes: -ASPI81CH37 CHEW; -CALCCHW25 PO; -CELE200C PO; -COQ-100C5 PO; -DICL75 PO; -ENOX40P SQ; -ERGO1CAP10 PO; -ESTR0.053 TD; -FLON0.053; -FURO1TAB93 PO; -HYDR-3288 PO; -LEVO.2 PO; -LEVO100T5 PO; -LEVO200T4 PO; -METO25CR PO; -MULT-65 PO; -PANT40TA3 PO; -POTA-243 PO; -POTA10TA8 PO; -PROT40TA PO; -SIMV40 PO; -VITA200017 OR
[2017-05-13] MEDS ORDERED: CHOL1CAP34 PO (10:48)
[2017-05-13] MEDS ORDERED: POTA10TA2 PO (10:54)
[2017-05-13] MEDS ORDERED: BUPR150XL PO (10:56)
[2017-05-13] MEDS ORDERED: VITA500S3 SL (10:56)
[2017-05-30 06:30] VITALS: BP 121/76; PULSE 85; RESP 20; TEMP 98.1; O2SAT 98
[2017-05-30] MEDS ORDERED: ROPIVACAINE PERI-ARTICULAR INJECTION. P-ARTICULR SCH ×5 (06:30)
[2017-05-30] MEDS ORDERED: INSULIN HUMAN REGULAR 1,000 UNITS/10 ML VIAL SQ PRN (06:30)
[2017-05-30] MEDS ORDERED: SODIUM CHLORID 0.9% 500 ML IV PRN (06:30)
[2017-05-30] MEDS ORDERED: VANCOMYCIN 1000 MG/NS 250 ML (for <70 kg) IV SCH ×2 (06:30)
[2017-05-30] MEDS ORDERED: POVIDONE IODINE 7.5% SCRUB 118 ML BOTTLE TOPICAL SCH (06:30)
[2017-05-30] MEDS ORDERED: ceFAZolin 2 GM PREMIX 50 ML IV SCH (06:30)
[2017-05-30] MEDS ORDERED: CHLORHEXIDINE GLUCONATE 4% SOLN 120 ML BTL TOPICAL SCH (06:30)
[2017-05-30] MEDS ORDERED: CHLORHEXIDINE GLUCONATE 2 % 1 PACK (2 CLOTHS) TOPICAL PRN (06:30)
[2017-05-30] MEDS ORDERED: POVIDONE IODINE 5% (ANTISEPSIS KIT) 4 APPLICATIONS EACH NARE PRN (06:30)
[2017-05-30] MEDS ORDERED: LACTATED RINGER'S 1000 ML IV PRN (06:30)
[2017-05-30] MEDS ORDERED: METOPROLOL TARTRATE 25 MG TAB PO PRN (06:30)
[2017-05-30] MEDS ORDERED: DEXAMETHASONE SOD PHOS 20 MG/5 ML VIAL ONE (06:34)
[2017-05-30] MEDS ORDERED: SYNT25TA PO (06:48)
[2017-05-30] MEDS ORDERED: HYDR-3288 PO (06:59)
[2017-05-30] MEDS ORDERED: ENOX40P SQ (06:59)
[2017-05-30] MEDS ORDERED: ASPI81CH37 CHEW (07:00)
[2017-05-30] MEDS ORDERED: ONDANSETRON HCL 4 MG/2 ML VIAL IVP PRN (07:00)
[2017-05-30] MEDS ORDERED: BISACODYL 10 MG SUPP RECTAL PRN (07:00)
[2017-05-30] MEDS ORDERED: SODIUM CHLORIDE 0.9% FLUSH 10 ML FLUSH IV FLUSH PRN (07:00)
[2017-05-30] MEDS ORDERED: ZOLPIDEM TARTRATE 5 MG TAB PO PRN (07:00)
[2017-05-30] MEDS ORDERED: HYDROmorphone HCL PF 2 MG/ML VIAL IV PRN (07:00)
[2017-05-30] MEDS ORDERED: diphenhydrAMINE HCL 50 MG/ML VIAL IV PRN (07:00)
[2017-05-30] MEDS ORDERED: GENTAMICIN SULFATE 80 MG/2 ML VIAL ONE (07:21)
[2017-05-30] MEDS ORDERED: TRANEXAMIC PERI-ARTICULAR 3,000 MG/NS 100 ML P-ARTICULR SCH ×2 (08:30)
[2017-05-30] MEDS ORDERED: TRANEXAMIC ACID IV SCH (08:30)
[2017-05-30] MEDS ORDERED: SODIUM CHLORIDE 0.9% IV SCH (08:30)
[2017-05-30] MEDS ORDERED: Post-op Orders (for Pharmacy) MISC XX ONE (10:29)
[2017-05-30] MEDS ORDERED: MIDAZOLAM HCL 2 MG/2 ML VIAL ONE (10:41)
[2017-05-30] MEDS ORDERED: *MEPERIDINE 25 MG INJ VIAL PERIprocedural Use ONLY ONE (10:42)
[2017-05-30] MEDS ORDERED: fentaNYL CITRATE 250 MCG/5 ML AMP ONE (10:42)
[2017-05-30] MEDS: SODIUM CHLOR 0.9% 1000 ML INJ 1,000 ML IV SCH ×2 (11:00→21:00)
[2017-05-30] MEDS: SODIUM CHLORIDE 0.9% FLUSH 10 ML FLUSH IV FLUSH SCH ×2 (11:00→22:05)
[2017-05-30] MEDS ORDERED: *HYDROmorphone PF 1 MG VIAL PERIprocedural Use ONLY ONE (11:01)
[2017-05-30] MEDS ORDERED: BUPIVACAINE LIPOSOME PF 1.3% 20 ML VIAL ONE (11:15)
--- NOTE | 2017-05-30 11:19 | RADRPT ---
EXAM DATE/TIME: 05/30/2017 10:45 [facility] COMPARISON: No previous studies available for comparison. INDICATIONS : Post-op right knee replacement. MEDICAL HISTORY : None. SURGICAL HISTORY : Total knee replacement, left. ENCOUNTER: Initial ACUITY: 1 day PAIN SCORE: 6/10 LOCATION: Right knee. FINDINGS: Two view examination of the right knee demonstrates postsurgical changes following right knee replace ment. Prosthetic components appear to be well-seated in satisfactory alignment. There is no subacute fracture. Subcutaneous air is noted.. CONCLUSION: Status post right knee replacement with satisfactory alignment of the prostheses. Note is acute fracture. Osmel Joaquin MD on May 30, 2017 at 11:17 Board Certified Radiologist. This report was verified electronically.
--- NOTE | 2017-05-30 11:41 | PD.CONS ---
HPI Service [facility] Hospitalists Consult Requested By Dr. Mane Groves Reason for Consult Medical Management Primary Care Physician Harris Zhang MD Diagnoses: History of Present Illness Mrs. Vidal is a pleasant 61 y/o female with hypothyroidism, mild PHILIP, hyperlipidemia, hx of breast cancer and osteoarthritis. Pt was previously admitted in 02/2017 and underwent left total knee arthroplasty performed by Dr. Groves on 02/21/17. She was seen by [facility] Hospitalist team in consultation at that time and pt had an uneventful post-operative course and went home with home health care. She is admitted today for elective right total knee arthroplasty with Dr. Groves on 05/30/17. [facility] Hospitalist team was consulted to help with post- operative medical management. Pt is seen in the PACU and is doing well. Vital signs are stable. Murrell catheter in place. She reports that the only change in her medical history since the surgery is that she had Wellbutrin added to her medication regimen. Review of Systems Constitutional: DENIES: Fever, Chills Ears, nose, mouth, throat: DENIES: Vertigo Respiratory: DENIES: Cough, Shortness of breath Cardiovascular: DENIES: Chest pain, Palpitations Gastrointestinal: DENIES: Abdominal pain, Nausea, Vomiting Genitourinary: DENIES: Hematuria Musculoskeletal: COMPLAINS OF: Joint pain Integumentary: DENIES: Rash Neurologic: DENIES: Headache Psychiatric: DENIES: Confusion Past Family Social History Past Medical History Hypothyroidism Hyperlipidemia Osteoarthritis Migraine headaches Obstructive sleep apnea, uses a dental appliance and she has mild sleep apnea. Asthma Hx of breast cancer Vitamin D deficiency GERD Hx of depression Allergic rhinitis Past Surgical History Left total knee arthroplasty on 02/21/[address] Groves Left breast radical mastectomy in 1997 along with chemotherapy and radiation therapy Left breast reconstruction Prophylactic simple right mastectomy on 08-31-10 with right breast reconstruction Right knee arthroscopy Cesarian section ERNST with BSO Ventral hernia repair Reported Medications --Levothyroxine 200 Mcg PO MoFr --Levothyroxine 150 Mcg PO SuTuWeThSa -Wellbutrin 150 Mg PO DAILY -Potassium Chloride ER 10 Meq PO DAILY -Ranitidine 150 Mg PO BID -Ventolin Hfa 90 Mcg/Act Aer 2 Puff INH Q4-6H PRN -Zocor 40 Mg PO HS -Furosemide 20 Mg PO DAILY -Fluticasone Nasal [place] 50 Mcg EACH NARE BID PRN -Estradiol 0.5 Mg PO TUESDAY Vitamin D3 (Cholecalciferol) 50,000 Unit Cap 50,000 Units PO EVERY TUESDAY Vitamin B-12 (Cyanocobalamin) 500 Mcg Subl 500 Mcg SL BID Multi For Her 50+ (Multiple Vitamins W/ Minerals) 1 Tab Tab 1 Tab PO DAILY Co Q 10 (Coenzyme Q10 (Ubidecarenone)) 100 Mg Cap 1 Cap PO DAILY Calcium 500 +D (Calcium Carbonate-Cholecalciferol) 500-400 Mg-Unit Tab 1 Tab PO DAILY Allergies: Coded Allergies: Ciprofloxacin (Verified Allergy, Severe, YEAST INFECTION, 05/30/17) Spironolactone (Verified Allergy, Severe, Rash, 05/30/17) Morphine (Verified Adverse Reaction, Intermediate, Confusion WHEN GIVEN IV , 05/30/17) Uncoded Allergies: ASPARTAME (Allergy, Severe, MOOD SWINGS, 02/21/17) paper tape (Allergy, Severe, Rash, 02/02/17) Family History Noncontributory Social History Pt denies any alcohol, tobacco or illicit drug use Pt works as a nurse Physical Exam Vital Signs Vital Signs Date Time Temp Pulse Resp B/P Pulse Ox O2 Delivery O2 Flow Rate FiO2 05/30/17 06:30 98.1 85 20 121/76 98 Physical Exam GENERAL: This is a well-nourished, well-developed patient, in no apparent distress. HEENT: Atraumatic. Normocephalic. No temporal or scalp tenderness. No scleral icterus. Airway patent. NECK: Trachea midline, supple, nontender. CARDIO: Regular, tachy. RESP: CTA bilaterally. No wheezes, rales, or rhonchi. ABD: +BS, soft, non-tender, nondistended. EXT: RLE bandages are c/d/i, RLE in CPM machine NEURO: Awake and alert. Motor and sensory grossly within normal limits. Normal speech. Laboratory Laboratory Tests Test 05/30/17 06:50 Blood Type O POSITIVE Antibody Screen NEGATIVE Imaging Last Impressions Knee X-Ray 05/30/17 0656 Signed Impressions: Service Date/Time: Tuesday, May 30, 2017 10:45 - CONCLUSION: Status post right knee replacement with satisfactory alignment of the prostheses. Note is acute fracture. Osmel Joaquin MD Assessment and Plan Problem List: (1) Primary localized osteoarthrosis, lower leg Status: Acute Plan: - Pt s/p right total knee arthroplasty on 05/30/[address] Groves - Post-op pain control per Ortho - Antiemetics PRN - Murrell to be removed tomorrow morning. - IS - PT daily - Constipation precautions - DVT prophylaxis with Lovenox (2) Hypothyroidism Status: Chronic Plan: - Home meds continued with Levothyroxin 200mcg MoFr and 150mcg SuTuWeThSa (3) Hyperlipidemia Status: Chronic Plan: - home meds continued (4) PHILIP (obstructive sleep apnea) Status: Chronic Plan: - Pt uses a dental appliance and this is well controlled per the pt. Assessment and Plan Patient examined. Assessment and plan formulated with Chanda Clemens PA-C. I agree with the above. Problem Qualifiers (1) Primary localized osteoarthrosis, lower leg: Qualified Code: M17.11 - Primary localized osteoarthrosis of right lower leg Chanda Clemens May 30, 2017 11:41 José Miguel Mcdowell MD May 30, 2017 13:41
[2017-05-30] MEDS ORDERED: DO NOT ADM ANY ANTICOAGULANT DRUGS PRN (11:45)
[2017-05-30] MEDS ORDERED: PROPOFOL 200 MG/20 ML AMP IV ONE (12:00)
[2017-05-30] MEDS ORDERED: NEOSTIGMINE 3 MG/3 ML SYR IV ONE (12:00)
[2017-05-30] MEDS: FUROSEMIDE 20 MG TAB PO SCH (12:00)
[2017-05-30] MEDS ORDERED: ONDANSETRON HCL 4 MG/2 ML VIAL IV PUSH ONE (12:00)
[2017-05-30] MEDS: POTASSIUM CHLORIDE 10 MEQ CONTROLLED RELEASE TAB PO SCH (12:00)
[2017-05-30 14:30] VITALS: BP 121/77; PULSE 91; RESP 17; TEMP 96.9; O2SAT 98
[2017-05-30] MEDS: ACETAMINOPHEN/HYDROcodone 325 MG/7.5 MG TAB PO PRN ×2 (14:51→22:05)
[2017-05-30 16:00] VITALS: BP 116/72; PULSE 100; RESP 17; TEMP 96.4; O2SAT 97
[2017-05-30 20:20] VITALS: BP 99/61; PULSE 98; RESP 18; TEMP 98.1; O2SAT 97
[2017-05-30] MEDS: FAMOTIDINE 20 MG TAB PO SCH (22:04)
[2017-05-31 00:20] VITALS: BP 102/58; PULSE 93; RESP 18; TEMP 96.4; O2SAT 98
[2017-05-31] MEDS: ACETAMINOPHEN/HYDROcodone 325 MG/7.5 MG TAB PO PRN ×3 (03:32→13:55)
[2017-05-31 04:16] VITALS: BP 101/69; PULSE 102; RESP 18; TEMP 97.2; O2SAT 96
[2017-05-31] MEDS ORDERED: LEVOTHYROXINE SODIUM 100 MCG TAB PO ONE (06:00)
[2017-05-31] MEDS ORDERED: LEVOTHYROXINE SODIUM 25 MCG TAB PO SCH (06:00)
[2017-05-31] MEDS: SODIUM CHLOR 0.9% 1000 ML INJ 1,000 ML IV SCH (06:02)
[2017-05-31 08:00] VITALS: BP 89/60; PULSE 99; RESP 18; TEMP 96.5; O2SAT 100
[2017-05-31 08:30] VITALS: O2SAT 99
[2017-05-31 08:48] LABS: HEMATOCRIT 30.4 % (35.0-46.0); MEAN CELL VOLUME 84.4 FL (80.0-100.0); MEAN CORPUSCULAR HEMOGLOBIN 27.4 PG (27.0-34.0); MEAN CORPUSCULAR HGB CONC 32.5 % (32.0-36.0); PLATELET COUNT 266 TH/MM3 (150-450); RED CELL DISTRIBUTION WIDTH 14.5 % (11.6-17.2); REVIEW FLAG FINAL; WHITE BLOOD COUNT 11.8 TH/MM3 (4.0-11.0)
[2017-05-31] MEDS: SODIUM CHLORIDE 0.9% FLUSH 10 ML FLUSH IV FLUSH SCH (09:00)
[2017-05-31] MEDS ORDERED: buPROPion HCL 150 MG SUSTAINED RELEASE TAB PO SCH (09:00)
--- NOTE | 2017-05-31 09:04 | PD.ORT.PN ---
Subjective Post Op Day #: 1 Subjective Remarks doing well. pain meds help. denies cp and sob. Objective Vitals Vital Signs Date Time Temp Pulse Resp B/P Pulse Ox O2 Delivery O2 Flow Rate FiO2 05/31/17 08:30 99 21 05/31/17 08:00 96.5 99 18 89/60 100 05/31/17 04:16 97.2 102 18 101/69 96 05/31/17 00:20 96.4 93 18 102/58 98 05/30/17 22:12 Nasal Cannula 2.00 05/30/17 20:20 98.1 98 18 99/61 97 05/30/17 16:00 96.4 100 17 116/72 97 05/30/17 14:30 96.9 91 17 121/77 98 05/30/17 14:14 Nasal Cannula 3.00 05/30/17 14:00 108 24 134/69 95 Nasal Cannula 3 05/30/17 13:00 110 17 150/73 97 Nasal Cannula 3 05/30/17 12:30 90 14 152/74 98 Nasal Cannula 3 05/30/17 12:00 102 14 144/76 93 Nasal Cannula 3 05/30/17 11:45 94 14 130/68 92 Nasal Cannula 3 05/30/17 11:30 95 17 157/78 100 Nasal Cannula 3 05/30/17 11:15 97 24 156/77 99 Nasal Cannula 4 05/30/17 11:00 109 29 168/86 98 Nasal Cannula 4 05/30/17 10:45 108 12 165/84 95 Nasal Cannula 4 05/30/17 10:34 97.6 114 22 180/97 94 Nasal Cannula 4 I/O 05/30/17 05/30/17 05/30/17 05/31/17 05/31/17 05/31/17 06:59 14:59 22:59 06:59 14:59 22:59 Intake Total 900 ml 1180 ml 857 ml Output Total 825 ml 400 ml Balance 75 ml 780 ml 857 ml Intake Oral 0 ml 360 ml 240 ml IV Total 820 ml 617 ml Other 900 ml Output Urine Total 725 ml 400 ml Estimated Blood Loss 100 ml # Bowel Movements 0 0 Result Diagram: 05/31/17 0630 Objective Remarks in bed, nad incision no erythema, no drainage neg homans nvi Assessment & Plan Ortho Post Op Day #: 1 Problem List: Assessment and Plan s/p R TKA wbat daily dressing changes lovenox d/c planning home with hhc and pt cleared today if does well with PT f/up dr. villagomez 2 weeks Earl Aguila May 31, 2017 09:04
--- NOTE | 2017-05-31 09:06 | HHI.DCPOC ---
Discharge Care Plan Diagnosis: (1) Primary localized osteoarthrosis, lower leg Your Health Problems Are: Difficulty with ADL Goals to Promote Your Health * To prevent worsening of your condition and complications * To maintain your health at the optimal level Directions to Meet Your Goals Take your medications as prescribed Follow your dietary instruction Follow activity as directed Keep your appointments as scheduled Take your immunizations and boosters as scheduled If your symptoms worsen call your PCP, if no PCP go to Urgent Care Center or Emergency Room Smoking is Dangerous to Your Health. Avoid second hand smoke Call the 24-hour hour crisis hotline for domestic abuse at Earl Aguila May 31, 2017 09:06
--- NOTE | 2017-05-31 09:07 | HHI.FF ---
Face to Face Verification Diagnosis: (1) Primary localized osteoarthrosis, lower leg Physical Therapy Gait training, Safety evaluation, Transfer training, bed to chair Knee: Total knee, Protocol: Right, Full weight bearing Right LE Weight Bearing: WB as tolerated Nursing RN: 3 days/week x 2 weeks Nursing: Evelin teaching, Dressing changes Dressing Changes: Daily dressing change I have seen patient Yvette Vidal on 05/31/17. My clinical findings support the need for the requested home health care services because: Limited ability to care for self High risk of falls I certify that my clinical findings support that this patient is homebound because: Post-op weakness Unsteady gait/balance Earl Aguila May 31, 2017 09:07
[2017-05-31] MEDS ORDERED: CPMMACHINE (09:08)
[2017-05-31 09:18] LABS: BICARBONATE 25.8 MEQ/L (21.0-32.0); POTASSIUM 4.1 MEQ/L (3.5-5.1)
[2017-05-31 09:47] VITALS: BP 131/65
[2017-05-31] MEDS: FAMOTIDINE 20 MG TAB PO SCH (09:47)
[2017-05-31] MEDS: POTASSIUM CHLORIDE 10 MEQ CONTROLLED RELEASE TAB PO SCH (09:48)
[2017-05-31] MEDS: FUROSEMIDE 20 MG TAB PO SCH (09:48)
[2017-05-31] MEDS ORDERED: ENOXAPARIN SODIUM 40 MG/0.4 ML SYRINGE SQ SCH (10:00)
[2017-05-31 12:00] VITALS: BP 110/70; PULSE 86; RESP 17; TEMP 95.9; O2SAT 99
[2017-05-31] MEDS ORDERED: DOCUSATE SODIUM 100 MG CAP PO SCH (21:00)
[2017-05-31] MEDS ORDERED: MULTIVITAMINS/MINERALS THERAPEUTIC TAB PO SCH (21:00)
--- NOTE | 2017-06-01 08:44 | MP ---
cc: TAYLER BINGHAM DATE OF SURGERY 05/30/2017 PREOPERATIVE DIAGNOSIS Right knee osteoarthritis POSTOPERATIVE DIAGNOSES Right knee osteoarthritis PROCEDURE Right total knee arthroplasty SURGEON Dr. Tayler Bingham TRANSPORTATION MANAGER ZAIRA Ramirez ANESTHESIA General with an adductor canal block. ESTIMATED BLOOD LOSS 100 cc COMPLICATIONS None TOURNIQUET TIME 53 minutes at 250 mmHg IMPLANTS DePuy attune size 6 posterior stabilized femoral component, size 5 rotating platform tibia baseplate, size 8-mm tibial insert, size 38 patella. JUSTIFICATION The patient is a 61-year-old female with a history of severe end-stage osteoarthritis involving the right knee. She has severe disabling pain with standing, walking, ambulation weight-bearing activities, severe pain at rest. She has failed greater than three months of nonoperative conservative treatment to include medication therapy, injections, ambulatory assisted aids, home exercise program, activity modification, weight loss attempts. X-ray of the right knee revealed severe end-stage osteoarthritis, [id number] joint space narrowing, subchondral sclerosis, subchondral osteophyte formation, varus deformity. The patient was counseled as to the risks, benefits and alternatives to a total knee arthroplasty. The risks were discussed which include, but are not limited to bleeding, infection, damage to nerves and blood vessels, pain, stiffness, failure of the components, blood clots, pulmonary embolism and even . The patient's pain is severe. She favored the benefits over the risks and she did wish to proceed with surgery. PROCEDURE IN DETAIL A written consent was obtained. The patient notified by name, taken to the operating room, placed supine position and general anesthesia was administered as well as two grams of IV Ancef and one gram of IV vancomycin. She received an adductor canal block to the right lower extremity. A well-padded tourniquet was placed on the right thigh. The right lower tree prepped and draped using Isopropyl alcohol, Hibiclens solution and Chloraprep solution. An Esmarch bandage was used to exsanguinate the right lower extremity. The tourniquet inflated to 250 mmHg. A longitudinal incision made over the anterior aspect of the right knee. A parapatellar arthrotomy was performed. The patella was everted. A patellar resection guide was used to resect 9 mm of patella. A size 38 mm guide was placed. Three drill holes were placed and a 38 mm trial fit well. Attention was turned to the femur where an AP sizer block measured a size 6, anterior reference surgery external rotation guide was used to pin a size [address] The anterior, posterior and chamfer cuts were performed. Attention was turned the tibia where an extramedullary tibial guide was set to remove 2 mm of lowest portion of the medial tibial plateau. The tibia guide was pinned in place and tibia cut was performed. Of note, distal femoral resection consisted of an intramedullary guide with 10 mm of distal femur resected 5 degrees off the anatomic valgus axis alignment. A size 6 PCL box guide was pinned in place. The PCL box was cut with an oscillating saw. The medial and lateral meniscus remnants were removed, as well as bone and soft tissue debris from the posterior portion of the knee. A size 5 tibia base was pinned in place. The tibia was drilled and punched. Trial component were evaluated and trial components were left in place. With the current components, the leg could achieved full extension to 0 degrees with flexion to 140. No evidence of tibial lift-off. Varus-valgus balance appeared appropriate and symmetric and the patella noted to track centrally. The tourniquet deflated. Bovie cautery was used for hemostasis. The arthrotomy incision was closed with #1 Vicryl suture, subcutaneous layer with 2-0 Vicryl suture, skin was closed with Dermabond. A sterile dressing applied. The patient tolerated the procedure with no intraoperative complications noted. Tayler Aguila, Physician Missile Tracking Technician Certified, was present during the entire procedure to include patient positioning and the procedure itself. The medical necessity of a physician assistant professor of communication was indicated in this case due to the complexity of the procedure. He assisted with appropriate manipulation of the leg, and also traction of muscle, tendon, bone and neurovascular structures. He assisted with preparation of bone and implantation of the internal fixation device. MD NIDA Watkins/ILENE /10:04 AM /8:21 AM
== END 2017-05-31 15:39 | disposition home health service (06) | DRG 470 ==
LOC: HSDI 05-30 05:16 → N06A 05-30 14:17
PROVIDERS: ADMIT Orthopaedic Surgery Sports Medicine; ATTEND Orthopaedic Surgery Sports Medicine
PROC: 3E0T3CZ (ICD-10-PCS; 2017-05-30)
PROC: 0SRC0J9 Replacement of Right Knee Joint with Synthetic Substitute, Cemented, Open Approach (ICD-10-PCS; principal; 2017-05-30 08:00)
DX: M17.11 Unilateral primary osteoarthritis, right knee (principal); E03.9 Hypothyroidism, unspecified; E78.5 Hyperlipidemia, unspecified; G47.33 Obstructive sleep apnea (adult) (pediatric); J45.909 Unspecified asthma, uncomplicated; K21.9 Gastro-esophageal reflux disease without esophagitis; Z85.3 Personal history of malignant neoplasm of breast; Z90.10 Acquired absence of unspecified breast and nipple; Z96.652 Presence of left artificial knee joint; Z92.21 Personal history of antineoplastic chemotherapy; Z92.3 Personal history of irradiation
CPT/HCPCS: 73560; 80048; 85027; 86850; 86900; 86901; 94150; C1776; C9290; J0171; J0690; J0735; J1100; J1170; J1580; J1650; J1885; J2175; J2250; J2405; J2710; J2795; J3010; J3370; J7030; J7050; L1830

== ENCOUNTER → 2017-05-13 | Outpatient (CLI) | payer OTHER ==
[~2017-05-13] MED LIST changes: +ASPI81CH37 CHEW; +BUPR150XL PO; +CHOL1CAP34 PO; +ENOX40P SQ; +ERGO1CAP10 PO; +HYDR-3288 PO; +POTA10TA2 PO; +POTA10TA8 PO; +VITA500S3 SL
[2017-05-13 10:38] LABS: AUTOMATED NEUTROPHIL # 3.5 TH/MM3 (1.8-7.7); BASOPHIL % 0.7 % (0.0-2.0); EOSINOPHIL # 0.1 TH/MM3 (0-0.4); EOSINOPHIL % 1.8 % (0.0-4.0); HEMATOCRIT 36.8 % (35.0-46.0); HEMO FLAGS DIFF FINAL; LYMPH % 29.9 % (9.0-44.0); LYMPHOCYTE # 1.7 TH/MM3 (1.0-4.8); MEAN CELL VOLUME 83.4 FL (80.0-100.0); MEAN CORPUSCULAR HEMOGLOBIN 28.8 PG (27.0-34.0); MEAN CORPUSCULAR HGB CONC 34.5 % (32.0-36.0); MONO % 7.7 % (0.0-8.0); NEUT % 59.9 % (16.0-70.0); PLATELET COUNT 262 TH/MM3 (150-450); RED BLOOD COUNT 4.41 MIL/MM3 (4.00-5.30); RED CELL DISTRIBUTION WIDTH 14.6 % (11.6-17.2); WHITE BLOOD COUNT 5.8 TH/MM3 (4.0-11.0)
[2017-05-13 10:57] LABS: APTT (PATIENT) 27.8 SEC (24.3-30.1); INTERNATIONAL NORMALIZED RATIO 0.9 RATIO
[2017-05-13 11:07] LABS: ALT (GPT) 19 U/L (10-53); ANION GAP 10 MEQ/L (5-15); AST (GOT) 14 U/L (15-37); BICARBONATE 26.4 MEQ/L (21.0-32.0); BLOOD UREA NITROGEN 9 MG/DL (7-18); CHLORIDE 101 MEQ/L (98-107); GLOMERULAR FILTRATION RATE 106 ML/MIN (>89); GLUCOSE,FASTING 99 MG/DL (74-99); SODIUM (NA) 137 MEQ/L (136-145)
[2017-05-13 11:09] LABS: WESTERGREN SEDIMENTATION RATE 22 mm/hr (0-30)
[2017-05-13 11:10] LABS: ALKALINE PHOSPHATASE 110 U/L (45-117); TOTAL BILIRUBIN ADULT 0.3 MG/DL (0.2-1.0)
[2017-05-13 11:23] LABS: BLOOD, URINE NEG (NEG); COMMENT (UR) CULT NOT INDICATED; CULTURE IF INDICATED CULT NOT INDICATED; GLUCOSE,URINE NEG (NEG); KETONE, URINE NEG (NEG); MUCUS URINE FEW /lpf (OCC); NITRITE,URINE NEG (NEG); PH, URINE 6.5 (5.0-8.5); SQUAMOUS EPITHELIAL CELL URINE 2 /hpf (0-5); URINE COLOR YELLOW (YELLW/STRAW)
--- NOTE | 2017-05-14 12:28 | EKG ---
Date Performed: 05/13/2017 Time Performed: 10:28:32 PTAGE: 61 years EKG: Sinus rhythm Since previous tracing, no significant change noted NORMAL ECG PREVIOUS TRACING : 02/02/2017 10.12.14 DOCTOR: Enrico Rodas Interpretating Date/Time 05/14/2017 12:23:30
== END ==
LOC: CPRE 10:02
PROVIDERS: ATTEND Orthopaedic Surgery Sports Medicine
DX: Z01.812 Encounter for preprocedural laboratory examination (principal); Z01.810 Encounter for preprocedural cardiovascular examination; M17.11 Unilateral primary osteoarthritis, right knee; M25.50 Pain in unspecified joint; Z96.60 Presence of unspecified orthopedic joint implant; Z79.01 Long term (current) use of anticoagulants
CPT/HCPCS: 36415; 80053; 81001; 85025; 85610; 85652; 85730; 93005

== ENCOUNTER 2017-10-11 07:58 | Emergency (ER) | payer OTHER ==
[~2017-10-11] VITALS: Ht 172.7 cm; Wt 100.0 kg
[~2017-10-11 07:58] MED LIST changes: -ASPI81CH37 CHEW; +ASPI81CH6 CHEW; -COMMODE 3-IN-11 MIS; -ERGO1CAP10 PO; -LEVO150T7 PO; -LEVO50TA4 PO; -POTA10TA8 PO; +SYNT25TA PO; -WALKER WHEELS/F1 MIS
[2017-10-11 08:02] VITALS: BP 158/75; PULSE 84; RESP 16; TEMP 97.8; O2SAT 98
[2017-10-11 08:20] VITALS: BP 140/78; PULSE 76; RESP 18; O2SAT 99
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
[2017-10-11] MEDS ORDERED: ACETAMINOPHEN 325 MG TAB PO ONE (08:30)
[2017-10-11 09:01] LABS: AUTOMATED NEUTROPHIL # 4.5 TH/MM3 (1.8-7.7); BASOPHIL % 0.6 % (0.0-2.0); EOSINOPHIL # 0.1 TH/MM3 (0-0.4); HEMOGLOBIN 12.2 GM/DL (11.6-15.3); LYMPH % 24.7 % (9.0-44.0); LYMPHOCYTE # 1.6 TH/MM3 (1.0-4.8); MEAN CELL VOLUME 83.8 FL (80.0-100.0); MEAN CORPUSCULAR HEMOGLOBIN 28.4 PG (27.0-34.0); MEAN CORPUSCULAR HGB CONC 33.9 % (32.0-36.0); MEAN PLATELET VOLUME 7.7 FL (7.0-11.0); MONO % 6.6 % (0.0-8.0); MONOCYTE # 0.4 TH/MM3 (0-0.9); NEUT % 67.1 % (16.0-70.0); PLATELET COUNT 256 TH/MM3 (150-450); RED CELL DISTRIBUTION WIDTH 14.9 % (11.6-17.2); WHITE BLOOD COUNT 6.6 TH/MM3 (4.0-11.0)
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
[2017-10-11 09:12] LABS: BLOOD UREA NITROGEN 12 MG/DL (7-18); CALCIUM 9.7 MG/DL (8.5-10.1); CHLORIDE 101 MEQ/L (98-107); CREATININE 0.59 MG/DL (0.50-1.00); GLOMERULAR FILTRATION RATE 104 ML/MIN (>89); GLUCOSE,RANDOM 101 MG/DL (74-106); SODIUM (NA) 136 MEQ/L (136-145)
[2017-10-11 09:16] LABS: TROPONIN I LESS THAN 0.02 NG/ML (0.02-0.05)
[2017-10-11 10:28] VITALS: RESP 18
[2017-10-11] MEDS ORDERED: TYLE325T PO (10:39)
--- NOTE | 2017-10-11 15:12 | EKG ---
Date Performed: 10/11/2017 Time Performed: 08:39:05 PTAGE: 61 years EKG: Sinus rhythm NORMAL ECG No significant change from prior electrocardiogram. PREVIOUS TRACING : 05/13/2017 10.28 DOCTOR: Sukhjinder Garcia Interpretating Date/Time 10/11/2017 15:11:33
== END 2017-10-11 10:56 | disposition home or self-care (01) ==
LOC: NEPC 07:58
DX: R07.9 Chest pain, unspecified (principal); R51 Headache; E03.9 Hypothyroidism, unspecified; J45.909 Unspecified asthma, uncomplicated; V43.52XA Car driver injured in collision with other type car in traffic accident, initial encounter; Y92.410 Unspecified street and highway as the place of occurrence of the external cause; Z85.3 Personal history of malignant neoplasm of breast; Z90.13 Acquired absence of bilateral breasts and nipples; Z92.3 Personal history of irradiation
CPT/HCPCS: 71010; 80048; 82550; 84484; 85025; 85610; 85730; 93005; 99285